=== PATIENT | female | born 1980 | race Caucasian/White ===

== ENCOUNTER 2016-11-23 17:59 | Emergency (ER) | payer SELFPAY ==
[2016-11-23] MEDS ORDERED: FOL8 PO (18:44)
[2016-11-23] MEDS ORDERED: PRENAT PO (18:44)
== END 2016-11-23 21:41 | disposition left against medical advice (07) ==
LOC: FTE 17:59
DX: Z53.21 Procedure and treatment not carried out due to patient leaving prior to being seen by health care provider (principal)

== ENCOUNTER 2016-11-23 18:17 | Outpatient (CLI) | payer MEDICAID ==
[~2016-11-23] VITALS: Ht 167.6 cm; Wt 82.1 kg
[2016-11-23 18:39] VITALS: Ht 167.6 cm; Wt 82.1 kg
[2016-11-23 18:40] VITALS: BP 122/70; PULSE 94; RESP 18
[2016-11-23] MEDS ORDERED: FOL8 PO (18:44)
[2016-11-23] MEDS ORDERED: PRENAT PO (18:44)
[2016-11-23] MEDS ORDERED: LACTATED RINGER'S 1,000 ML IV ONE (19:30)
--- NOTE | 2016-11-23 19:46 | PREOPHP ---
DATE OF ADMISSION: 11/23/2016 HISTORY OF PRESENT ILLNESS: Ms. Francia Chan is a 36-year-old, 3, para 1, EDC 04/03/2017 , intrauterine at 50-qwflp-ugn-2-days' gestational age, who was sent from clinic today com plaining of pelvic pressure/vaginal pressure. She is observed to have irregular contractions on the TOCO. heart tracing is in the 140s to 150s. She denies any vaginal bleeding or discharge. Her care is taking place at [facility]. MEDICAL HISTORY: None. MEDICATIONS 1. vitamins. 2. Folic acid. PAST SURGICAL HISTORY: None. OBSTETRIC HISTORY: Vaginal delivery x1, missed AB x1. GYNECOLOGIC HISTORY: Twelve, regular 3 to 4 days. Denies any sexually transmitted diseases. Sexua lly active with 1 partner. SOCIAL HISTORY: Denies any smoking, drugs or alcohol. FAMILY HISTORY: None. PHYSICAL EXAMINATION HEENT: Within normal. LUNGS: CTA bilateral. CARDIOVASCULAR: S1, S2, regular rhythm. ABDOMEN: Gravid, nontender. Negative CVA bilateral. EXTREMITIES: Negative edema. No calf tenderness. PELVIC: Vaginal exam deferred to rule out low lying placenta or placenta previa. ASSESSMENT: A 36-year-old 3, para 1, intrauterine at 45-vkjof-fce-2-days' gestati onal age with a rule-out labor. PLAN: IV hydration, ultrasound for estimated weight and cervical length and rule out placenta previa. Dictated By: DON GALVIN/GERI Conf#: [id number] DID#: [id number]
[2016-11-23 19:54] LABS: ADD UMIC YES; URINE BILIRUBIN (Dip) NEGATIVE (NEGATIVE); URINE BLOOD (Dip) NEGATIVE (NEGATIVE); URINE COLOR YELLOW (YELLOW); URINE GLUCOSE (Dip) NEGATIVE (NEGATIVE); URINE KETONES (Dip) 40 (NEGATIVE); URINE LEUKOCYTE ESTERASE (Dip) 3+ (NEGATIVE); URINE NITRITE (Dip) NEGATIVE (NEGATIVE); URINE TOTAL PROTEIN (Dip) NEGATIVE (NEGATIVE); URINE UROBILINOGEN (Dip) 0.2 E.U./dL (0.1-1.0)
--- NOTE | 2016-11-23 19:54 | RADRPT ---
PROCEDURE: US OB. CLINICAL INDICATION: Contractions TECHNIQUE: Multiple sonographic images of the pelvis were obtained. The images were reviewed on a PACS workstation. COMPARISON: 08/11/2016 FINDINGS: The cervix is closed with a length of 5.1 cm. There is a single viable intrauterine gestation. Cardiac activity is present with 156 beats per min ivon. There is a transverse to maternal left presentation. Measurements were made in order to determine age. The results are as follows: BPD =21 weeks 4 days HC =20 weeks 3 days AC =21 weeks 6 days FL =21 weeks 6 days. Estimated gestational age of approximately 21 weeks 3 days. The estimated date of delivery is 04/02/2017. The EFW = 1 pound 0 ounces 68.1% . The placenta is anterior left grade 1. There is no evidence for an abruption . There is complete pl acenta previa There is a normal amount of amniotic fluid . The single largest pocket measures 5.2 cm IMPRESSION: Single viable intrauterine gestation of approximately 21 weeks 3 days. The estimated date of delive ry is 04/02/2017 . Complete placenta previa .Steve Mckinnon MD, Date Time Electronically viewed and signed by .Steve Mckinnon MD, on 11/23/2016 19:54 .W/
[2016-11-23 20:08] LABS: BACTERIA,URINE MODERATE; SQUAMOUS EPITHELIAL CELL,UR MANY; URINE RBCS NONE SEEN /HPF (0)
[2016-11-23] MEDS ORDERED: LACTATED RINGER'S 1,000 ML IV SCH (20:30)
[2016-11-23 20:39] LABS: BARBITURATES Negative (NEGATIVE); BENZODIAZEPINES Negative (NEGATIVE); CANNABINOIDS Negative (NEGATIVE); COCAINE Negative (NEGATIVE); OPIATES Negative (NEGATIVE)
--- NOTE | 2016-11-23 22:10 | TRIAGE ---
OB Triage Datetime Report Generated by CPN: 11/23/2016 22:09 Datetime: 11/23/2016 21:33 Stage of : OB Triage Labor Evaluation Frequency: 0 Monitor Mode: External Resting Tone [place]: Relaxed Datetime: 11/23/2016 19:30 Stage of : OB Triage Labor Evaluation Frequency: 2-3 Monitor Mode: External Duration (sec)2399: 70-80 Quality: Mild Resting Tone [place]: Relaxed Datetime: 11/23/2016 19:06 Stage of : OB Triage Datetime: 11/23/2016 18:35 Assessment Type: Triage Maternal Assessment Level of Consciousness: Fully Conscious DTR's/Clonus: DTRs 2+; No Clonus Headache: Denies Blurred Vision: No Respiratory Effort: Unlabored Breath Sounds, Left: Clear and Equal Breath Sounds, Right: Clear and Equal Nausea/Vomiting: Denies RUQ Epigastric Pain: Denies Lower Extremities Edema: None Degree: None Upper Extremities Edema: None Degree: None Facial Edema: None Fall Risk Assessment History of Falling: (0) No Secondary Diagnosis: (15) Yes (Annotations: AMA) Ambulatory Aid: (0) Bedrest/Nurse Assist IV Therapy: (0) No Gait: (0) Normal/Bedrest/Immobile Mental Status: (0) Oriented to Own Ability Fall Score: 15 Fall Risk Score Definition: No Risk: No action required Datetime: 11/23/2016 18:32 Monitor Mode: External Datetime: 11/23/2016 18:30 Heart Rate Monitor Mode: Doppler Comments: X 1 MIN. FHTs audible from 149 to 168 bts/min Datetime: 11/23/2016 18:24 Time of Arrival: 11/23/2016 18:10 EGA: 21.2 Arrived By: Ambulatory Arrived From: Office Chief Complaint: OCCASIONAL VAGINAL PRESSURE Contractions: Denies/Absent Rupture of Membranes: Denies Vaginal Bleeding: None Vaginal Discharge: Denies Recent Sexual Intercouse: Denies Abdominal Trauma: Not Applicable Patient Complaints: Other Additional Patient Complaints: Pt states she has hx of low lying placenta Provider Notified: HIMA Initial Plan: VS, DOPPLER, TOCO, UA, C_S, EFW, PLACENTA, CL, IV HYDRATION
== END 2016-11-23 21:55 | disposition home or self-care (01) ==
LOC: L-D 18:17 → OBT 18:17
PROVIDERS: ATTEND Obstetrics & Gynecology
DX: O26.892 Other specified pregnancy related conditions, second trimester (principal); R10.2 Pelvic and perineal pain; O62.9 Abnormality of forces of labor, unspecified; O09.522 Supervision of elderly multigravida, second trimester; Z3A.21 21 weeks gestation of pregnancy
CPT/HCPCS: 36415; 76815; 76817; 80307; 81001; 87086; 96360; J7120; Z7500; 81003; G0463

== ENCOUNTER 2017-01-20 02:56 | Outpatient (CLI) | payer MEDICAID ==
[~2017-01-20] VITALS: Ht 167.6 cm; Wt 85.6 kg
[~2017-01-20 02:56] MED LIST: FOL8 PO; PRENAT PO
[2017-01-20 03:09] VITALS: Ht 167.6 cm; Wt 85.6 kg
[2017-01-20 03:10] VITALS: BP 120/79; PULSE 88; RESP 18
--- NOTE | 2017-01-20 04:49 | RADRPT ---
PROCEDURE: ULTRASOUND OBSTETRICAL CLINICAL INDICATION: 36-year-old female in labor for cervical length evaluation. TECHNIQUE: Multiple sonographic images of the pelvis were obtained. The images were reviewed on a PACS workstation. COMPARISON: Ultrasound OB November 23, 2016. FINDINGS: The cervix is closed with a length of 3.4 cm. There is a single viable intrauterine gestation. Card iac activity is present with 150 beats per minute. There is a vertex presentation. The placenta is a nterior. IMPRESSION: 1. Single viable intrauterine gestation with vertex presentation. 2. The cervix is closed with a length of 3.4 cm. .Hung Doll MD, MD Date Time Electronically viewed and signed by .Hung Doll MD, on 01/20/2017 04:49 .M/
[2017-01-20 04:51] LABS: ADD UMIC YES; URINE BILIRUBIN (Dip) NEGATIVE (NEGATIVE); URINE BLOOD (Dip) 1+ (NEGATIVE); URINE GLUCOSE (Dip) NEGATIVE (NEGATIVE); URINE KETONES (Dip) 15 (NEGATIVE); URINE LEUKOCYTE ESTERASE (Dip) 3+ (NEGATIVE); URINE NITRITE (Dip) NEGATIVE (NEGATIVE); URINE TOTAL PROTEIN (Dip) NEGATIVE (NEGATIVE); URINE UROBILINOGEN (Dip) 0.2 E.U./dL (0.1-1.0)
[2017-01-20 05:01] LABS: URINE COLOR YELLOW (YELLOW)
[2017-01-20 05:09] LABS: SQUAMOUS EPITHELIAL CELL,UR MANY
[2017-01-20 05:10] LABS: BACTERIA,URINE MANY
--- NOTE | 2017-01-20 06:54 | CONS ---
Date/Time of Note Date/Time of Note DATE: 01/20/17 TIME: 06:51 Assessment/Plan Assessment/Plan Additional Assessment/Plan No e/o ptl. Discharge with no e/o infection. Discharge home with ptl precaution. Rx for UTI given. F/u with OB. Consultation Date/Type/Reason Admit Date/Time Hx of Present Illness at 29.4 weeks with abdominal and back pain, now improved with rest. Also reports greenish discharge. Denies LOF, VB, UCs. +FM. Getting PNC, on bedrest due to being high risk per patient. Past Medical History Medical History: no pertinent history Past Surgical History Past Surgical Hx: no surgical history Social History Smoking Status: Never smoker Other Social History Denies habits Exam/Review of Systems Vital Signs Vitals Vital Signs Date Time Temp Pulse Resp B/P Pulse Ox O2 Delivery O2 Flow Rate FiO2 01/20/17 03:10 98.0 88 18 120/79 Room Air Exam Gen: NAD HEENT: NCAT CV: RRR Pulm: CTAB Abd: gravid, NT Back: no CVAT Ext: NT SSE: minimal green-tinged discharge FHT: reactive [place]: no UCs Results Results 24 hrs Laboratory Tests Test 01/20/17 03:45 Urine Color YELLOW Urine Clarity HAZY Urine pH 6.0 Urine Specific [place] 1.025 Urine Ketones 15 Urine Nitrite NEGATIVE Urine Bilirubin NEGATIVE Urine Urobilinogen 0.2 E.U./dL Urine Leukocyte Esterase 3+ H Urine Microscopic RBC 2-5 Urine Microscopic WBC 25-50 Urine Squamous Epithelial Cells MANY Urine Bacteria MANY Urine Hemoglobin 1+ H Urine Glucose NEGATIVE Urine Total Protein NEGATIVE Fibronectin NEGATIVE ESTHER ESCOBEDO Jan 20, 2017 06:54
--- NOTE | 2017-01-20 07:50 | TRIAGE ---
OB Triage Datetime Report Generated by CPN: 01/20/2017 07:49 Datetime: 01/20/2017 07:28 Time of Arrival: 01/20/2017 03:40 EGA: 29.4 Arrived By: Wheelchair Arrived From: Home Chief Complaint: ABD PAIN, GREEN DISCHARGE Movement: Present Contractions: Irregular Time Contractions Began: 01/20/2017 03:20 Rupture of Membranes: Denies Vaginal Bleeding: None Vaginal Discharge: Denies Recent Sexual Intercouse: Denies Abdominal Trauma: Not Applicable Patient Complaints: Contractions Time Provider Notified: 01/20/2017 03:40 Provider Notified: Dr. Knott Initial Plan: FFN, CVL, PO HYDRATION, UA Datetime: 01/20/2017 06:45 Stage of : OB Triage Labor Evaluation Frequency: X1 Monitor Mode: External Duration (sec)2399: 50 Quality: Mild Pattern: Normal: <= 5 Contractions in 10 Minutes Resting Tone [place]: Relaxed Heart Rate FHR Baseline Rate: 140 Monitor Mode: External US FHR Baseline Changes: No Baseline Change Variability: Moderate 6-25 bpm Accelerations: 15X15 Decelerations: None Category: Category I Datetime: 01/20/2017 06:00 Stage of : OB Triage Labor Evaluation Frequency: X2 Monitor Mode: External Duration (sec)2399: 50 Quality: Mild Pattern: Normal: <= 5 Contractions in 10 Minutes Resting Tone [place]: Relaxed Heart Rate FHR Baseline Rate: 140 Monitor Mode: External US FHR Baseline Changes: No Baseline Change Variability: Moderate 6-25 bpm Accelerations: 15X15 Decelerations: None Category: Category I Datetime: 01/20/2017 05:00 Stage of : OB Triage Labor Evaluation Frequency: X1 Monitor Mode: External Duration (sec)2399: 50 Quality: Mild Pattern: Normal: <= 5 Contractions in 10 Minutes Resting Tone [place]: Relaxed Heart Rate FHR Baseline Rate: 140 Monitor Mode: External US FHR Baseline Changes: No Baseline Change Variability: Moderate 6-25 bpm Accelerations: 15X15 Decelerations: None Category: Category I Datetime: 01/20/2017 04:00 Labor Evaluation Frequency: NONE Monitor Mode: External Quality: Mild Pattern: Normal: <= 5 Contractions in 10 Minutes Resting Tone [place]: Relaxed Heart Rate FHR Baseline Rate: 145 Monitor Mode: External US FHR Baseline Changes: No Baseline Change Variability: Moderate 6-25 bpm Accelerations: 15X15 Decelerations: None Category: Category I Datetime: 01/20/2017 03:22 Vaginal Exam Membrane Status: Intact Datetime: 01/20/2017 03:04 Stage of : OB Triage Maternal Assessment Level of Consciousness: Fully Conscious DTR's/Clonus: DTRs 2+; No Clonus Headache: Denies Blurred Vision: No Respiratory Effort: Unlabored; Regular Rhythm; Equal Expansion Breath Sounds, Left: Clear and Equal Breath Sounds, Right: Clear and Equal Nausea/Vomiting: Denies RUQ Epigastric Pain: Denies Facial Edema: None Temperature Route: Axillary Fall Risk Assessment History of Falling: (0) No Secondary Diagnosis: (0) No Ambulatory Aid: (0) Bedrest/Nurse Assist IV Therapy: (0) No Gait: (0) Normal/Bedrest/Immobile Mental Status: (0) Oriented to Own Ability Fall Score: 0 Fall Risk Score Definition: No Risk: No action required Labor Evaluation Frequency: none Pattern: Normal: <= 5 Contractions in 10 Minutes Resting Tone [place]: Relaxed Heart Rate FHR Baseline Rate: 135 Monitor Mode: External US Datetime: 11/23/2016 21:45 Arrived From: Home Movement: Present Contractions: Irregular Rupture of Membranes: Denies Vaginal Bleeding: None Vaginal Discharge: Denies Recent Sexual Intercouse: Denies Abdominal Trauma: Not Applicable Provider Notified: DR. UAJ Datetime: 11/23/2016 18:35 Fall Score: 15 Fall Risk Score Definition: No Risk: No action required Datetime: 11/23/2016 18:24 EGA: 21.2
== END 2017-01-20 07:10 | disposition home or self-care (01) ==
LOC: OBT 02:56 → L-D 02:58 → OBT 07:10
PROVIDERS: ATTEND Obstetrics & Gynecology
DX: O23.43 Unspecified infection of urinary tract in pregnancy, third trimester (principal); Z3A.29 29 weeks gestation of pregnancy
CPT/HCPCS: 76817; 81001; 82731; Z7500; 81003; G0463

== ENCOUNTER 2017-02-16 18:25 | Outpatient (CLI) | payer MEDICAID ==
[~2017-02-16] VITALS: Ht 167.6 cm; Wt 83.9 kg
[2017-02-16 18:32] VITALS: Ht 167.6 cm; Wt 83.9 kg
--- NOTE | 2017-02-16 19:06 | RADRPT ---
PROCEDURE: US biophysical profile. CLINICAL INDICATION: GDM. well-being. TECHNIQUE: Multiple sonographic images of the uterus were obtained. The images were revi ewed on a PACS workstation. COMPARISON: No prior studies are available for comparison. FINDINGS: There is a single live intrauterine gestation. heart rate is 146 beats per minute. The position is cephalic. The placenta is anterior, grade 1. The KEISHA is 16 cm. Breathing Movement: 2 Gross Body Movement: 2 Tone: 2 Qualitative Amniotic Fluid Volume: 2 TOTAL: 8 IMPRESSION: 1. Single viable intrauterine gestation. 2. Biophysical profile = 05/08. 3. KEISHA = 16 cm. RPTAT: HFN .Luisito Mccann MD, Date Time Electronically viewed and signed by .Luisito Mccann MD, MD on 02/16/2017 19:06 .N/
--- NOTE | 2017-02-16 20:32 | QN ---
Documentation Comment iup 33 weeks gdm vss exam wnl us wnl a/p iup 33 weeks gdm stable dc aristes JACQUES GRANGER MD February 16, 2017 20:32
--- NOTE | 2017-02-16 20:40 | TRIAGE ---
OB Triage Datetime Report Generated by CPN: 02/16/2017 20:40 Datetime: 02/16/2017 19:53 Stage of : OB Triage Labor Evaluation Frequency: 0 Monitor Mode: External Resting Tone [place]: Relaxed Heart Rate FHR Baseline Rate: 135 Monitor Mode: External US Variability: Moderate 6-25 bpm Accelerations: 15X15 Decelerations: None Category: Category I Comments: CATEGORY 1 TRACING Datetime: 02/16/2017 19:01 Stage of : OB Triage Labor Evaluation Frequency: 0 Monitor Mode: External Resting Tone [place]: Relaxed Heart Rate FHR Baseline Rate: 140 Monitor Mode: External US Variability: Moderate 6-25 bpm Accelerations: 15X15 Decelerations: None Category: Category I Pain Assessment Pain Presence: None/Denies Pain Type: N/A Datetime: 02/16/2017 18:36 Assessment Type: Triage Maternal Assessment Level of Consciousness: Fully Conscious DTR's/Clonus: DTRs 2+; No Clonus Headache: Denies Blurred Vision: No Respiratory Effort: Unlabored; Regular Rhythm; Equal Expansion Breath Sounds, Left: Clear and Equal Breath Sounds, Right: Clear and Equal Nausea/Vomiting: Denies RUQ Epigastric Pain: Denies Lower Extremities Edema: None Degree: None Upper Extremities Edema: None Degree: None Facial Edema: None Fall Risk Assessment History of Falling: (0) No Secondary Diagnosis: (0) No Ambulatory Aid: (0) Bedrest/Nurse Assist IV Therapy: (0) No Gait: (0) Normal/Bedrest/Immobile Mental Status: (0) Oriented to Own Ability Fall Score: 0 Fall Risk Score Definition: No Risk: No action required Datetime: 02/16/2017 18:33 Stage of : OB Triage Labor Evaluation Frequency: 0 Monitor Mode: External Contraction Comments: PT DENIES FEELING ANY UC'S Heart Rate FHR Baseline Rate: 145 Monitor Mode: External US FHR Baseline Changes: No Baseline Change Variability: Moderate 6-25 bpm Accelerations: 15X15 Decelerations: None Category: Category I Pain Assessment Pain Presence: None/Denies Datetime: 02/16/2017 18:15 Stage of : OB Triage Datetime: 02/16/2017 18:10 Time of Arrival: 02/16/2017 18:10 EGA: 33.3 Arrived By: Ambulatory Arrived From: Office Chief Complaint: NST AND BPP FOR GDM Movement: Present Contractions: Denies/Absent Rupture of Membranes: Denies Vaginal Bleeding: None Vaginal Discharge: Denies Recent Sexual Intercouse: Denies Abdominal Trauma: Not Applicable Patient Complaints: None Initial Plan: NST, BPP Datetime: 01/20/2017 07:28 EGA: 29.4 Datetime: 01/20/2017 03:04 Fall Score: 0 Fall Risk Score Definition: No Risk: No action required Datetime: 11/23/2016 18:35 Fall Score: 15 Fall Risk Score Definition: No Risk: No action required Datetime: 11/23/2016 18:24 EGA: 21.2
== END 2017-02-16 20:22 | disposition home or self-care (01) ==
LOC: OBT 18:25 → L-D 18:26 → OBT 20:22
PROVIDERS: ATTEND Obstetrics & Gynecology
DX: O24.419 Gestational diabetes mellitus in pregnancy, unspecified control (principal); Z3A.33 33 weeks gestation of pregnancy; O09.523 Supervision of elderly multigravida, third trimester
CPT/HCPCS: 76818; G0463

== ENCOUNTER 2017-03-19 07:22 | Inpatient (IN) | payer MEDICAID ==
[~2017-03-19] VITALS: Ht 167.6 cm; Wt 83.2 kg
[2017-03-19] MEDS ORDERED: LACTATED RINGER'S 1,000 ML IV SCH (07:47)
[2017-03-19] MEDS ORDERED: LACTATED RINGER'S 1,000 ML IV PRN (07:50)
[2017-03-19 07:58] VITALS: Ht 167.6 cm; Wt 83.2 kg
[2017-03-19] MEDS ORDERED: OXYTOCIN 30 UNITS/LR 500 ML IV SCH ×2 (08:00)
[2017-03-19] MEDS ORDERED: MISOPROSTOL 200 MCG TAB PR PRN (08:00)
[2017-03-19] MEDS ORDERED: OXYTOCIN 30 UNITS/LR 500 ML IV PRN (08:00)
[2017-03-19] MEDS ORDERED: BUTORPHANOL 2 MG INJ IV PRN (08:00)
[2017-03-19] MEDS ORDERED: IBUPROFEN 600 MG TAB PO PRN (08:00)
[2017-03-19] MEDS ORDERED: CARBOPROST 250 MCG INJ IM PRN (08:00)
[2017-03-19] MEDS ORDERED: LIDOCAINE 1% (MPF) 30 ML INJ INJ PRN (08:00)
[2017-03-19] MEDS ORDERED: AMPICILLIN 2 GM/NS (PMX) 100 ML IV ONE (08:00)
[2017-03-19] MEDS ORDERED: METHYLERGONOVINE 0.2 MG INJ IM PRN (08:00)
[2017-03-19] MEDS ORDERED: AMPICILLIN 1 GM/NS (PMX) 50 ML IV SCH (12:00)
--- NOTE | 2017-05-22 19:53 | DS ---
Date/Time of Note Date/Time of Note DATE: 05/22/17 TIME: 19:52 Obstetrical Discharge Record Final Diagnosis Final Diagnosis: not delivered Condition on Discharge Physical Assessment Voiding: Yes Bowel Movement: Yes Breast: Soft, non-tender, Filling Fundus: Firm Calf Tenderness: No Patient Condition: Fair DON RABAGO MD May 22, 2017 19:53
== END 2017-03-19 11:00 | disposition home or self-care (01) | DRG 778 ==
LOC: UNDOADMIN 07:22 → L-D 07:22 → OBT 07:22 → L-D 07:50 → OBT 11:40 → L-D 11:40 → UNDODISIN 11:45
PROVIDERS: ADMIT Obstetrics & Gynecology; ATTEND Obstetrics & Gynecology
DX: O60.03 Preterm labor without delivery, third trimester (principal); Z3A.00 Weeks of gestation of pregnancy not specified
CPT/HCPCS: G0463; J7120

== ENCOUNTER 2017-04-02 06:30 | Inpatient (IN) | payer MEDICAID ==
[~2017-04-02] VITALS: Ht 167.6 cm; Wt 82.3 kg
[2017-04-02] MEDS: LACTATED RINGER'S 1,000 ML IV SCH ×2 (07:11→15:11)
[2017-04-02] MEDS ORDERED: MISOPROSTOL 200 MCG TAB PR PRN (07:30)
[2017-04-02] MEDS ORDERED: OXYTOCIN 30 UNITS/LR 500 ML IV PRN (07:30)
[2017-04-02] MEDS ORDERED: CARBOPROST 250 MCG INJ IM PRN (07:30)
[2017-04-02] MEDS ORDERED: OXYTOCIN 30 UNITS/LR 500 ML IV SCH (07:30)
[2017-04-02] MEDS ORDERED: METHYLERGONOVINE 0.2 MG INJ IM PRN (07:30)
[2017-04-02] MEDS ORDERED: IBUPROFEN 600 MG TAB PO PRN (07:30)
[2017-04-02] MEDS ORDERED: AMPICILLIN 2 GM/NS (PMX) 100 ML IV ONE (07:30)
[2017-04-02] MEDS ORDERED: ACETAMINOPHEN/CODEINE #3 TAB PO PRN (07:30)
[2017-04-02] MEDS ORDERED: LIDOCAINE 1% (MPF) 30 ML INJ INJ PRN (07:30)
[2017-04-02] MEDS ORDERED: BUTORPHANOL 2 MG INJ IV PRN (07:30)
[2017-04-02] MEDS: DEXTROSE 5%-LR 1,000 ML IV SCH ×3 (08:41→18:03)
[2017-04-02 08:51] LABS: ADD SCAN DIFF NO
[2017-04-02 08:55] VITALS: Ht 167.6 cm; Wt 82.3 kg
[2017-04-02 08:55] LABS: BASOPHILS % 0.2 % (0.0-2.0); EOSINOPHILS # 0.1 10^3/ul (0.0-0.5); EOSINOPHILS % 1.1 % (0.0-7.0); HEMATOCRIT 34.4 % (37.0-47.0); HEMOGLOBIN 11.7 g/dl (12.0-16.0); LYMPHOCYTES # 1.1 10^3/ul (0.8-2.9); LYMPHOCYTES % 17.3 % (15.0-51.0); MEAN CORPUSCULAR HEMOGLOBIN 29.4 pg (29.0-33.0); MEAN CORPUSCULAR VOLUME 86.4 fl (82.0-101.0); MEAN PLATELET VOLUME 10.1 fl (7.4-10.4); MONOCYTE # 0.5 10^3/ul (0.3-0.9); MONOCYTES % 7.8 % (0.0-11.0); NEUTROPHIL # 4.7 10^3/ul (1.6-7.5); NEUTROPHILS % 73.1 % (39.0-77.0); PLATELET COUNT 219 10^3/UL (140-415); RED BLOOD COUNT 3.98 10^6/ul (4.20-5.40); RED CELL DISTRIBUTION WIDTH 15.4 % (11.5-14.5); WHITE BLOOD COUNT 6.4 10^3/ul (4.8-10.8)
[2017-04-02 08:56] VITALS: BP 108/65; PULSE 63; RESP 18
[2017-04-02] MEDS ORDERED: CALC600T11 PO (09:01)
[2017-04-02 09:12] LABS: INR 0.94; PARTIAL THROMBOPLASTIN TIME 27.3 Sec (25.0-35.0); PROTIME 12.6 Sec (12.2-14.2)
[2017-04-02 09:14] LABS: GLUCOSE 70 mg/dl (70-220)
[2017-04-02] MEDS ORDERED: DINOPROSTONE 10 MG VAG SUPP VAG ONE (09:15)
--- NOTE | 2017-04-02 09:31 | RADRPT ---
PROCEDURE: US OB. CLINICAL INDICATION: Size and dates TECHNIQUE: Multiple sonographic images of the pelvis and gravid uterus were obtained. The images were reviewed on a PACS workstation. COMPARISON: No prior studies are available for comparison. FINDINGS: There is a single viable intrauterine gestation. Cardiac activity is present with 134 beats per min ivon. There is a vertex presentation. The placenta is anterior. There are multiple small placental lakes noted. Measurements were made in order to determine age. The results are as follows: BPD =9.2 cm HC =33.3 cm AC =36.2 cm FL =7.8 cm Estimated gestational age of approximately 38 weeks and 6 days based on ultrasound measurements. Clinical age: 41 weeks and 0 days. The estimated date of delivery is 04/10/17, based on ultrasound measurements. The EFW = 3794 g, 50.6%, based on LMP age. RPTAT: AA IMPRESSION: Single viable intrauterine gestation of approximately 38 weeks and 6 days based on ultrasound measu rements. .Eric Astorga MD, Date Time Electronically viewed and signed by .Eric Astorga MD, on 04/02/2017 09:31 .S/
[2017-04-02] MEDS ORDERED: LACTATED RINGER'S 1,000 ML IV PRN (11:00)
[2017-04-02] MEDS: AMPICILLIN 1 GM/NS (PMX) 50 ML IV SCH ×4 (11:43→23:56)
[2017-04-02 14:07] VITALS: BP 102/56; PULSE 60; RESP 18
--- NOTE | 2017-04-03 01:27 | NSTRPT ---
NST Information Datetime Report Generated by CPN: 04/03/2017 01:27 Datetime: 03/30/2017 13:05 NST Information EGA: 40.4 Test Number: 3 Time on Monitor: 03/30/2017 13:35 Time off Monitor: 03/30/2017 14:06 NST Duration (Min): 31 Reason for NST: Diabetes Mellitus; Other Reason for NST Other: A1DM, Post Dates Test and Monitor Explained: Monitor Explained; Test Explained; Verbalized Understanding Pulse: 67 Resp: 18 SBP: 98 DBP: 63 Test Evaluation NST Interventions: Reposition Patient Patient States Movement: Present Decelerations: None FHR Category: Category I NST Results: Reactive Comments: To u/s. 14.1cm. CEPHALIC. FBS 69. 1415-Pt home undelivered with labor precautions, kick count instructions reviewed and to fo llow up with schedule induction for 04/02. States understanding and denies futher questions at this ti me. Electronically Signed By E-Signature: with User ID: [id number] Datetime: 03/27/2017 13:55 NST Information EGA: 40.1 NST Duration (Min): 23 Datetime: 03/23/2017 13:00 NST Information EGA: 39.4 NST Duration (Min): 36 Datetime: 03/20/2017 13:00 NST Information EGA: 39.1 NST Duration (Min): 28 Datetime: 03/16/2017 12:59 NST Information EGA: 38.4 NST Duration (Min): 26 Datetime: 03/13/2017 13:07 NST Information EGA: 38.1 NST Duration (Min): 23 Datetime: 03/09/2017 13:00 NST Information EGA: 37.4 NST Duration (Min): 20 Datetime: 03/06/2017 14:34 NST Information EGA: 37.1 NST Duration (Min): 23
[2017-04-03] MEDS: LACTATED RINGER'S 1,000 ML IV SCH ×2 (02:55→11:28)
[2017-04-03] MEDS ORDERED: OXYTOCIN 30 UNITS/LR 500 ML IV SCH (03:00)
[2017-04-03] MEDS: OXYTOCIN 30 UNITS/LR 500 ML IV SCH ×4 (03:17→17:49)
[2017-04-03] MEDS: AMPICILLIN 1 GM/NS (PMX) 50 ML IV SCH ×2 (03:24→07:42)
[2017-04-03] MEDS: DEXTROSE 5%-LR 1,000 ML IV SCH (05:37)
[2017-04-03] MEDS ORDERED: ONDANSETRON 4 MG INJ IV PRN (11:30)
[2017-04-03] MEDS ORDERED: NALOXONE (0.4 MG/ML) INJ IV PRN (11:30)
[2017-04-03] MEDS ORDERED: FENTAnyl 2MCG/ML-ROPIV 0.2% 100 ML BAG EPI SCH (11:30)
[2017-04-03] MEDS ORDERED: DIPHENHYDRAMINE 50 MG INJ IV PRN (11:30)
[2017-04-03] MEDS ORDERED: HYDROmorphONE 1 MG/ML SYG IV PRN ×2 (11:30)
[2017-04-03] MEDS ORDERED: FENTAnyl 2MCG/ML-ROPIV 0.2% 0 ML ONE (11:32)
--- NOTE | 2017-04-03 11:58 | LDN ---
Date/Time of Note Date/Time of Note DATE: 04/03/17 TIME: 11:54 Delivery Summary April 03 2017 Delivery note Weeks of Gestation 40 weeks one day Placenta Delivered: Spontaneously Perineal laceration: 1 Estimated blood loss: 250 Sponge & Needle done & correct: Yes All needle counts correct: Yes Any foreign bodies felt in the: No Problems: Infant Delivery Information Sex Infant Sex: female Apgars 1 Minute: 9 5 Minute: 9 Suctioning Nose & mouth suctioned at barbara: Yes Delee suction performed: No Umbilical Cord Umbilical cord with: 3 Vessels Cord presentations: nuchal cord Nuchal cord present X: 3 Cord Blood was obtained: Yes Mother & Baby Disposition Disposition Mom & Baby to Maternity; Good: Yes Mom transferred to: Med/Surg Baby to NICU: No ARNAUD PUGH MD Apr 03, 2017 11:58
[2017-04-03] MEDS: LACTATED RINGER'S 1,000 ML IV* SCH (13:25)
[2017-04-03 13:30] VITALS: BP 93/52; PULSE 62; RESP 18
[2017-04-03] MEDS ORDERED: METHYLERGONOVINE 0.2 MG INJ IM PRN (13:30)
[2017-04-03] MEDS ORDERED: CARBOPROST 250 MCG INJ IM PRN (13:30)
[2017-04-03] MEDS ORDERED: ACETAMINOPHEN 500 MG TAB PO PRN (13:30)
[2017-04-03] MEDS ORDERED: MISOPROSTOL 200 MCG TAB PR PRN (13:30)
[2017-04-03] MEDS ORDERED: OXYTOCIN 30 UNITS/LR 500 ML IV PRN (13:30)
[2017-04-03 14:30] VITALS: BP 93/53; PULSE 58; RESP 16
[2017-04-03 15:00] VITALS: BP 89/54; PULSE 54; RESP 18
[2017-04-03 16:15] VITALS: BP 115/65; PULSE 80; RESP 18
[2017-04-03 19:35] VITALS: BP 98/60; PULSE 58; RESP 18
[2017-04-04] VITALS: BP 100/56; PULSE 77; RESP 18
[2017-04-04 04:10] VITALS: BP 109/62; PULSE 65; RESP 18
[2017-04-04] MEDS: IBUPROFEN 600 MG TAB PO PRN (04:45)
[2017-04-04 06:43] LABS: ADD SCAN DIFF NO
[2017-04-04 06:54] LABS: BASOPHILS % 0.1 % (0.0-2.0); EOSINOPHILS # 0.1 10^3/ul (0.0-0.5); EOSINOPHILS % 1.7 % (0.0-7.0); HEMATOCRIT 33.7 % (37.0-47.0); LYMPHOCYTES # 1.5 10^3/ul (0.8-2.9); LYMPHOCYTES % 17.4 % (15.0-51.0); MEAN CORPUSCULAR HEMOGLOBIN 28.6 pg (29.0-33.0); MEAN CORPUSCULAR HGB CONC 32.6 g/dl (32.0-37.0); MEAN CORPUSCULAR VOLUME 87.8 fl (82.0-101.0); MEAN PLATELET VOLUME 9.8 fl (7.4-10.4); MONOCYTE # 0.5 10^3/ul (0.3-0.9); MONOCYTES % 5.5 % (0.0-11.0); NEUTROPHIL # 6.3 10^3/ul (1.6-7.5); NEUTROPHILS % 74.8 % (39.0-77.0); PLATELET COUNT 200 10^3/UL (140-415); RED BLOOD COUNT 3.84 10^6/ul (4.20-5.40); RED CELL DISTRIBUTION WIDTH 15.8 % (11.5-14.5); WHITE BLOOD COUNT 8.4 10^3/ul (4.8-10.8)
[2017-04-04] MEDS: OXYTOCIN 30 UNITS/LR 500 ML IV SCH ×2 (09:25→13:25)
[2017-04-04 09:30] VITALS: BP 109/64; PULSE 69; RESP 18
[2017-04-04] MEDS: LACTATED RINGER'S 1,000 ML IV* SCH ×2 (09:36→13:25)
[2017-04-04] MEDS: FOLIC ACID 0.4 MG TAB PO SCH (09:37)
[2017-04-04] MEDS: MULTIVIT/MIN/FOLATE/IRON/PREN TAB PO SCH (09:37)
[2017-04-04 15:50] VITALS: BP 99/56; PULSE 74; RESP 17
[2017-04-04 19:30] VITALS: BP 98/56; PULSE 79; RESP 17
--- NOTE | 2017-04-04 20:22 | PD.PPDC ---
IN HOME SALES CONSULTANT Discharge Instruction Condition Patient Condition: Fair Diet Diet: Resume Regular Diet Activity/Restrictions Restrictions: No Driving No Sexual Activity Nothing in the Vagina No [place] No Tampons, douche Follow-up Follow-up with Physician: 3, Week/Weeks Return to clinic for MANAGEMENT ACCOUNTANT Instructions: Fever greater than 101 Chills Worsening abdominal pain Excessive Vaginal Bleeding More than 2 pads per hour Unable to tolerate diet OB Instructions: Breast Tenderness Depression Blurried Vision Headache Surgical Instructions: Incisional Drainage Incisional Redness DON RABAGO MD Apr 04, 2017 20:22
[2017-04-04] MEDS ORDERED: BENZOCAINE 20% 56 ML SPRAY TOP PRN (20:30)
[2017-04-04] MEDS ORDERED: WITCH HAZEL/GLYCERIN PAD PR PRN (20:30)
[2017-04-05 04:10] VITALS: BP 100/53; PULSE 59; RESP 17
[2017-04-05 08:40] VITALS: BP 111/69; PULSE 67; RESP 19
[2017-04-05] MEDS: MULTIVIT/MIN/FOLATE/IRON/PREN TAB PO SCH (09:15)
[2017-04-05] MEDS: FOLIC ACID 0.4 MG TAB PO SCH (09:15)
[2017-04-05] MEDS: IBUPROFEN 600 MG TAB PO PRN (12:43)
[2017-04-05] MEDS ORDERED: DIPHTH/TET/ACEL PERTUSS (ADULT) 0.5 ML VIAL IM* ONE (13:00)
== END 2017-04-05 14:10 | disposition home or self-care (01) | DRG 775 ==
LOC: L-D 06:30 → PP1 04-03 13:24
PROVIDERS: ADMIT Obstetrics & Gynecology; ATTEND Obstetrics & Gynecology
PROC: 10E0XZZ Delivery of Products of Conception, External Approach (ICD-10-PCS; principal; 2017-04-03)
PROC: 0HQ9XZZ Repair Perineum Skin, External Approach (ICD-10-PCS; 2017-04-03)
PROC: 3E033VJ Introduction of Other Hormone into Peripheral Vein, Percutaneous Approach (ICD-10-PCS; 2017-04-03)
DX: O69.81X0 Labor and delivery complicated by cord around neck, without compression, not applicable or unspecified (principal); O24.429 Gestational diabetes mellitus in childbirth, unspecified control; O48.0 Post-term pregnancy; O70.0 First degree perineal laceration during delivery; Z3A.40 40 weeks gestation of pregnancy; Z37.0 Single live birth
CPT/HCPCS: 76815; 82947; 82962; 85025; 85610; 85730; 86592; 86850; 86870; 86885; 86900; 86901; 87340; 90715; J0290; J0595; J2590; J2790; J3010; J7120; J7121